=== PATIENT | female | born 1985 | race Caucasian/White ===

== ENCOUNTER 2016-11-04 22:03 | Emergency (ER) | payer OTHER ==
[2016-11-04 22:12] VITALS: RESP 16; TEMP 97.5
[2016-11-04 23:19] LABS: % IMMATURE GRANULYOCYTES 0.4 % (0.0-1.1); ABSOLUTE IMMATURE GRANULOCYTES 0.04 10^3/uL (0.00-0.10); ADD DIFF? NO; ADD MORPH? NO; ADD SCAN? NO; ATYPICAL LYMPHOCYTE FLAG 10 (0-99); FRAGMENT RBC FLAG 0 (0-99); HEMATOCRIT 45.5 % (38.0-47.0); HEMOGLOBIN 15.4 g/dL (12.6-16.3); LEFT SHIFT FLG 0 (0-99); LIPEMIA HEMOLYSIS FLAG 90 (0-99); MEAN CELL HEMOGLOBIN 31.2 pg (27.9-34.1); MEAN CELL HEMOGLOBIN CONCENTR. 33.8 g/dL (32.4-36.7); MEAN CELL VOLUME 92.3 fL (81.5-99.8); MEAN PLATELET VOLUME 10.8 fL (8.7-11.7); PLATELET CLUMPS FLAG 0 (0-99); PLATELET COUNT 335 10^3/uL (150-400); RED BLOOD CELL COUNT 4.93 10^6/uL (4.18-5.33)
--- NOTE | 2016-11-04 23:29 | EDPHY ---
H & P Stated Complaint: blurry vision, SOB Time Seen by Provider: 11/04/16 23:01 HPI/ROS: HPI The patient presents with showed an episode of shortness of breath which is now mostly resolved. It occurred about an hour prior to presentation when she stood up. She began coughing and having what seems like dry heaves to her partner. She felt lightheaded and her vision seemed blurry. She now feels somewhat lightheaded and mildly short of breath, however her symptoms have mostly resolved. She has 7 days from an uncomplicated vaginal delivery. Her was uncomplicated as well. She is concerned that she may have an air embolism because she felt air from her vagina during this episode.. REVIEW OF SYSTEMS Constitutional: No fever, no chills. Eyes: No discharge. ENT: No sore throat. Cardiovascular: No chest pain, no palpitations. Respiratory: No cough, no shortness of breath. Gastrointestinal: No abdominal pain, no vomiting. Genitourinary: No hematuria. Musculoskeletal: No back pain. Skin: No rashes. Neurological: No headache. 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, assistant professor in family studies PHYSICAL General Appearance: Alert, no distress Eyes: Pupils equal and round no pallor or injection ENT, Mouth: Mucous membranes moist Respiratory: There are no retractions, lungs are clear to auscultation Cardiovascular: Regular rate and rhythm Gastrointestinal: Abdomen is soft and non-tender, no masses, bowel sounds normal Neurological: A&O, moves all extremities Skin: Warm and dry, no rashes Musculoskeletal: Neck is supple non tender Extremities: symmetrical, full range of motion Psychiatric: Patient is oriented X 3, there is no agitation Source: Patient Exam Limitations: No limitations - Personal History LMP (Females 10-55): Over 28 Days Ago Current Tetanus/Diphtheria Vaccine: Yes Current Tetanus Diphtheria and Acellular Pertussis (TDAP): Yes - Medical/Surgical History Hx Asthma: No Hx Chronic Respiratory Disease: No Hx Diabetes: No Hx Cardiac Disease: No Hx Renal Disease: No Hx Cirrhosis: No Hx Alcoholism: No Hx HIV/AIDS: No Hx Splenectomy or Spleen Trauma: No Other PMH: PFO, - Social History Smoking Status: Never smoked Constitutional: Initial Vital Signs Temperature (C) 36.4 C 11/04/16 22:09 Heart Rate 72 11/04/16 22:09 Respiratory Rate 16 11/04/16 22:09 Blood Pressure 132/94 H 11/04/16 22:09 O2 Sat (%) 97 11/04/16 22:09 O2 Delivery Mode Room Air Allergies/Adverse Reactions: amoxicillin Allergy (Verified 11/04/16 22:08) Sulfa (Sulfonamide Antibiotics) Allergy (Verified 11/04/16 22:08) Home Medications: Medication Instructions Recorded Colace 11/04/16 11/04/16 Medical Decision Making - Diagnostics EKG Interpretation: EKG: Complete interpretation has been separately recorded in the [facility] archive. Summary impression: Normal sinus rhythm Imaging Results: Imaging Impressions Chest X-Ray 11/04/16 23:26 Impression: Negative frontal chest radiograph. CT chest with IV contrast demonstrates no PE, discussed with Dr. Billingsley of Radiology. Imaging: Discussed imaging studies w/ will call clerk Radiologist, I viewed and interpreted images myself Differential Diagnosis: This is a 30-year-old female who is 7 days from an uncomplicated who presents with an episode of shortness of breath and dizziness, now mostly resolved. On exam, she is well-appearing, she has normal vital signs, her lungs sound clear. Differential diagnosis includes aspiration episode, pneumonia, PE, patient is concerned about air embolism. In the emergency room, basic labs were checked and were unremarkable, EKG was normal, chest x-ray was also normal. Her D-dimer was elevated, however this could be normal 7 days . I consulted with the on-call OBGYNStaci CNM, we discussed the case and agreed that air embolism would be highly unlikely given the patient's presentation with normal vital signs and mostly resolved symptoms. I explained this to the patient, however she is still concerned. Given her elevated D-dimer, there is some suspicion for pulmonary embolism. Decision was made for CTA of chest. This was performed and was unremarkable. The patient continued to feel well and was discharged from the emergency room. - Data Points Laboratory Results: Laboratory Results 11/04/16 22:45 11/04/16 22:45 11/04/16 11/04/16 11/04/16 22:45 22:45 22:45 WBC 10.45 10^3/uL H 10^3/uL (3.80-9.50) RBC 4.93 10^6/uL 10^6/uL (4.18-5.33) Hgb 15.4 g/dL g/dL (12.6-16.3) Hct 45.5 % % (38.0-47.0) MCV 92.3 fL fL (81.5-99.8) MCH 31.2 pg pg (27.9-34.1) MCHC 33.8 g/dL g/dL (32.4-36.7) RDW 12.0 % % (11.5-15.2) Plt Count 335 10^3/uL 10^3/uL (150-400) MPV 10.8 fL fL (8.7-11.7) Neut % (Auto) 59.6 % % (39.3-74.2) Lymph % (Auto) 30.7 % % (15.0-45.0) [place] % (Auto) 6.2 % % (4.5-13.0) Eos % (Auto) 2.3 % % (0.6-7.6) Baso % (Auto) 0.8 % % (0.3-1.7) Nucleat RBC Rel Count 0.0 % % (0.0-0.2) Absolute Neuts (auto) 6.23 10^3/uL 10^3/uL (1.70-6.50) Absolute Lymphs (auto) 3.21 10^3/uL H 10^3/uL (1.00-3.00) Absolute Monos (auto) 0.65 10^3/uL 10^3/uL (0.30-0.80) Absolute Eos (auto) 0.24 10^3/uL 10^3/uL (0.03-0.40) Absolute Basos (auto) 0.08 10^3/uL 10^3/uL (0.02-0.10) Absolute Nucleated RBC 0.00 10^3/uL 10^3/uL (0-0.01) Immature Gran % 0.4 % % (0.0-1.1) Immature Gran # 0.04 10^3/uL 10^3/uL (0.00-0.10) D-Dimer 1.32 ug/mLFEU H ug/mLFEU (0.00-0.50) Sodium 140 mEq/L mEq/L (134-144) Potassium 3.9 mEq/L mEq/L (3.5-5.2) Chloride 106 mEq/L mEq/L (97-110) Carbon Dioxide 24 mEq/l mEq/l (22-31) Anion Gap 10 mEq/L mEq/L (8-16) BUN 18 mg/dL mg/dL (7-23) Creatinine 0.9 mg/dL mg/dL (0.6-1.0) Estimated GFR > 60 Glucose 87 mg/dL mg/dL (70-100) Calcium 9.9 mg/dL mg/dL (8.5-10.4) Total Bilirubin 0.8 mg/dL mg/dL (0.1-1.4) AST 28 IU/L IU/L (14-46) ALT 41 IU/L IU/L (9-52) Alkaline Phosphatase 119 IU/L IU/L (38-126) Total Protein 7.2 g/dL g/dL (6.3-8.2) Albumin 4.0 g/dL g/dL (3.5-5.0) Departure - Departure Disposition: Home, Routine, Self-Care Clinical Impression: Shortness of breath Condition: Good Instructions: Dyspnea (ED) Referrals: [facility] [Other] - As per Instructions
[2016-11-04 23:38] LABS: ALANINE AMINOTRANSFERASE 41 IU/L (9-52); ALKALINE PHOSPHATASE 119 IU/L (38-126); ANION GAP 10 mEq/L (8-16); ASPARTATE AMINOTRANSFERASE 28 IU/L (14-46); BILIRUBIN,TOTAL 0.8 mg/dL (0.1-1.4); CALCIUM 9.9 mg/dL (8.5-10.4); CARBON DIOXIDE 24 mEq/l (22-31); CHLORIDE 106 mEq/L (97-110); CREATININE 0.9 mg/dL (0.6-1.0); GLOMERULAR FILTRATION RATE > 60; GLUCOSE 87 mg/dL (70-100); POTASSIUM 3.9 mEq/L (3.5-5.2); SODIUM 140 mEq/L (134-144); TOTAL PROTEIN 7.2 g/dL (6.3-8.2)
--- NOTE | 2016-11-04 23:38 | CPEKG ---
Heart Rate: 56 RR Interval: 1071 P-R Interval: 136 QRSD Interval: 76 QT Interval: 408 QTC Interval: 394 P [place]: 60 QRS [place]: 38 T Wave [place]: 47 EKG Severity - NORMAL ECG - EKG Impression: SINUS RHYTHM Electronically Signed By: Aixa Madrigal 05-Nov-2016 07:18:23
[2016-11-05] MEDS ORDERED: IOPAMIDOL (ISOVUE 370) 100 ML BTL IV ONE (00:24)
[2016-11-05 01:03] VITALS: BP 112/78; PULSE 51; O2SAT 94
== END 2016-11-05 01:11 | disposition home or self-care (01) ==
LOC: EDSEX 22:03
DX: R06.02 Shortness of breath (principal)
CPT/HCPCS: Q9967